=== PATIENT | female | born 1945 | race Caucasian/White ===

== ENCOUNTER 2017-12-12 09:45 | Day surgery (SDC) | payer OTHER ==
[2017-12-12] MEDS ORDERED: NA CHLORIDE 0.9% 500 ML ONE (10:11)
[2017-12-12] MEDS: PHENYLEPHRINE 10% OPTH 5ML ONE ×3 (10:13→10:27)
[2017-12-12] MEDS: CYCLOPENTOLATE 1% OPTH 2 ML ONE ×3 (10:13→10:27)
[2017-12-12] MEDS ORDERED: EPINEPHRINE/PF 1 MG/ML AMP ONE (10:25)
[2017-12-12] MEDS ORDERED: NS 0.9% VIAL 10 ML ONE (10:25)
[2017-12-12] MEDS ORDERED: BALANCED SALT IRRIG PLAIN 500 ML BTL IRR ONE (10:26)
[2017-12-12] MEDS ORDERED: DUOVISC 1 KIT OPTH ONE (10:26)
[2017-12-12] MEDS ORDERED: MOXIFLOXACIN HCL 10 DROPS/ML **OR USE OPTH ONE (10:26)
[2017-12-12] MEDS: TETRACAINE HCL 0.5% 2ML OPTH ONE ×2 (11:22→12:04)
[2017-12-12] MEDS: BUPIVACAINE 0.25% PF 10 ML VIAL ONE ×2 (11:23→12:05)
[2017-12-12] MEDS: LIDOCAINE 2% MPF 5 ML VIAL ONE ×2 (11:23→12:05)
[2017-12-12] MEDS ORDERED: PROPOFOL 200 MG/20 ML VIAL IV ONE (11:32)
[2017-12-12] MEDS ORDERED: LIDOCAINE 2% MPF 5 ML VIAL ONE ×2 (11:32→11:33)
--- NOTE | 2017-12-12 12:47 | P.BOP ---
Preoperative diagnosis: Nuclear sclerotic cataract OD Postoperative diagnosis: Same Primary procedure: Phacoemusification with IOL OD Estimated blood loss: None Anesthesia: Local (Subtenon's infusion with anesthesia for cataract surgery) Complications: None Implants: ZCB00 +23.0 Transferred to: Other (Day surgery) Condition: Good
[2017-12-12] MEDS ORDERED: BSS PLUS 500 ML BOTTLE IRR ONE (12:50)
[2017-12-12 13:33] VITALS: BP 185/86; TEMP 97.6; O2SAT 100
--- NOTE | 2017-12-12 23:57 | OP ---
Date of Procedure: 12/12/2017 Surgeon: Dede Hansen MD Anesthesiologist: Kem Pinon C.R.N.A. and Rakesh Parker M.D. Preoperative Diagnosis: Nuclear sclerotic cataract, OD (left eye). Operation Performed: Phacoemulsification with intraocular lens implant, left eye. Anesthesia: Per cataract surgery. Complications: None. Description Of Procedure: In day surgery, the patient was prepped with Betadine and draped. A conjunctival incision was made in the inferior nasal quadrant with Cait scissors. A sub-Tenon block consisting of a 1:1 mixture of 2% Xylocaine and 0.25% bupivacaine was placed through the conjunctival incision with a blunt cannula. A Honan balloon was placed over the eye and the patient was transferred to the operating room. In the operating room, the patient was prepped and draped in the usual sterile fashion for ophthalmic surgery. A lid speculum was placed in the right eye. Two paracentesis sites were made superiorly and inferiorly in the limbal cornea. Viscoat was placed in the anterior chamber and a crescent blade was used to make a corneal groove and tunnel, and a keratome was used to enter the anterior chamber. Provisc was placed in the anterior chamber and a 360-degree capsulotomy was performed with a cystitome. The lens was hydrodissected with BSS and rotated freely. The lens was removed with a stop and chop technique. A 4.66 phaco CDE was used to remove the lens. Residual cortex was removed with the irrigation and aspiration. Provisc was placed in the capsular bag. A ZCB00 +23.0 lens was placed in the capsular bag without complications. Irrigation and aspiration were used to remove residual viscoelastic. The paracentesis sites were hydrated with BSS. The wound and paracentesis sites were inspected and found to be watertight. Vigamox 0.07 cc was placed intracamerally at the end of the procedure. The eye was irrigated with balanced salt solution. The eye was patched with a soft cotton patch and Keen metal shield. The patient was returned to day surgery in good condition. Comments: BSS plus was used. Discharge Instructions: Ms. Weeks is discharged to home in good condition and is to follow up with Dr. Hansen in the morning. ADILSON/SHAHID Voice ID: [id number] Report ID: [id number]
== END 2017-12-12 13:15 | disposition home or self-care (01) ==
LOC: OR 09:45
PROVIDERS: ATTEND Ophthalmology Retina Specialist
PROC: 08RJ3JZ Replacement of Right Lens with Synthetic Substitute, Percutaneous Approach (ICD-10-PCS; principal; 2017-12-12 10:30)
DX: H25.11 Age-related nuclear cataract, right eye (principal); E78.00 Pure hypercholesterolemia, unspecified; Z83.3 Family history of diabetes mellitus; Z82.49 Family history of ischemic heart disease and other diseases of the circulatory system
CPT/HCPCS: 66984; J0171